=== PATIENT | female | born 1965 | race Caucasian/White ===

== ENCOUNTER 2017-02-01 13:28 | Emergency (ER) | payer BC ==
[~2017-02-01] VITALS: Ht 167.6 cm; Wt 63.0 kg
[2017-02-01 13:35] VITALS: BP 140/73; PULSE 93; RESP 16; TEMP 98.3; O2SAT 99
[2017-02-01] MEDS ORDERED: METF1000 PO (13:56)
[2017-02-01] MEDS ORDERED: GABA800T PO (13:56)
--- NOTE | 2017-02-01 13:58 | PD ---
HPI Chief Complaint: Dizziness Time Seen by Provider: 13:46 Travel History International Travel<30 days: No Contact w/Intl Traveler<30days: No Traveled to known affect area: No History of Present Illness HPI 51-year-old diabetic female here with complaint of lightheadedness. Patient has been off her metformin, insulin, gabapentin for 6+ months due to lapse of health insurance and financial ability. Patient states that since she's been having increasing symptoms of peripheral neuropathy in a stocking-like distribution the bilateral lower extremities, burning, tingling pain. She also notes that when she first gets up in the morning she feels somewhat lightheaded and dizzy. This improves after she eats. She does not have a primary care provider but now does have health insurance. No chest pain, shortness of breath. PFSH Past Medical History Cardiovascular Problems: Yes (DIABETIC NEUROPATHY) Diabetes: Yes Patient Takes Glucophage: No Kidney Stones: Yes (HX) Influenza Vaccination: No ?: Not LMP: 01/31/17 Past Surgical History Surgical History: No Previous Surgery Social History Alcohol Use: Yes (OCCAS) Tobacco Use: No Substance Use: No Allergies-Medications (Allergen,Severity, Reaction): Coded Allergies: No Known Allergies (Unverified , 02/01/17) Reported Meds & Prescriptions Reported Meds & Active Scripts Active Gabapentin 800 Mg Tab 800 Mg PO TID Metformin (Metformin HCl) 1,000 Mg Tab 1,000 Mg PO BIDPC With meals Review of Systems Except as stated in HPI: all other systems reviewed are Neg Physical Exam Narrative GENERAL: Middle-aged female in no acute distress SKIN: Focused skin assessment warm/dry. HEAD: Normocephalic. EYES: No scleral icterus. No injection or drainage. ENT: Mucous membranes pink and moist. NECK: Supple CARDIOVASCULAR: Regular rate and rhythm. No murmur appreciated. RESPIRATORY: No accessory muscle use. Clear to auscultation. Breath sounds equal bilaterally. GASTROINTESTINAL: Abdomen soft, non-tender, nondistended. MUSCULOSKELETAL: No obvious deformities.No edema. Stocking-like paresthesias in the bilateral lower extremities from the knee distally NEUROLOGICAL: Awake and alert. Motor grossly within normal limits. Normal speech. PSYCHIATRIC: Appropriate mood and affect; insight and judgment normal. Data Data Last Documented VS Vital Signs Date Time Temp Pulse Resp B/P Pulse Ox O2 Delivery O2 Flow Rate FiO2 02/01/17 13:35 98.3 93 16 140/73 99 MDM Medical Decision Making Medical Screen Exam Complete: Yes Emergency Medical Condition: Yes Medical Record Reviewed: Yes Differential Diagnosis 51-year-old type II diabetic noncompliant with medications 6 months due to lack of health insurance here with lightheadedness in the morning prior to eating and increasing neuropathic pain in the bilateral lower extremities. Blood glucose here in the 390s. Symptoms likely due to her underlying noncompliance and nontreatment of diabetes with hyperglycemia. She is asymptomatic at this time. Narrative Course I do not feel the patient warrants any further workup. She was reassured and instructed to start the metformin and gabapentin prescribed to her. She used to take insulin but does not know what type of insulin, nor how much. She was given referral to primary care provider to establish care and for further diabetic management. Diagnosis Primary Impression: Hyperglycemia Additional Impression: Diabetic neuropathy Qualified Code: E11.42 - Diabetic polyneuropathy associated with type 2 diabetes mellitus Referrals: [facility] call for appointment Additional Instructions: Metformin is free at [facility]. Follow-up with primary care provider to establish care. Med/Other Pt SpecificInfo: Prescription(s) given Scripts Gabapentin 800 Mg [id number] Mg PO TID #90 TAB Ref 0 Prov:Suni Queen MD 02/01/17 Metformin 1,000 Mg Tab1,000 Mg PO BIDPC #60 TAB Ref 0 With meals Prov:Suni Queen MD 02/01/17 Disposition: 01 DISCHARGE HOME Condition: Stable Suni Queen MD Feb 01, 2017 13:58
== END 2017-02-01 14:17 | disposition home or self-care (01) ==
LOC: PHED 14:02
DX: E11.65 Type 2 diabetes mellitus with hyperglycemia (principal); E11.40 Type 2 diabetes mellitus with diabetic neuropathy, unspecified; Z87.442 Personal history of urinary calculi; T38.3X6A Underdosing of insulin and oral hypoglycemic [antidiabetic] drugs, initial encounter; T42.6X6A Underdosing of other antiepileptic and sedative-hypnotic drugs, initial encounter; Z91.120 Patient's intentional underdosing of medication regimen due to financial hardship; Y92.9 Unspecified place or not applicable
CPT/HCPCS: 99284

== ENCOUNTER 2017-04-20 00:23 | Emergency (ER) | payer BC ==
[~2017-04-20] VITALS: Ht 165.1 cm; Wt 66.0 kg
[~2017-04-20 00:23] MED LIST: GABA800T PO; METF1000 PO
[2017-04-20 00:32] VITALS: BP 126/80; PULSE 94; RESP 18; TEMP 98.2; O2SAT 98
[2017-04-20] MEDS ORDERED: TETANUS/DIPHTHERIA TOXOID ADULT 0.5 ML VIAL IM ONE (01:00)
[2017-04-20] MEDS ORDERED: LIDOCAINE 1%/EPINEPHrine 1:100,000 SOLN 20 ML VIAL INFIL ONE (01:00)
--- NOTE | 2017-04-20 01:03 | PD ---
HPI Chief Complaint: Laceration/Skin Injury Time Seen by Provider: 00:58 Travel History International Travel<30 days: No Contact w/Intl Traveler<30days: No Traveled to known affect area: No History of Present Illness HPI The patient is a 51-year-old female that lacerated above her left ear at about 0015 tonight. She has not had a tetanus shot in over 10 years. There was no loss of consciousness. She denies any nausea or vomiting. She has a mild headache on the left. [facility] Past Medical History Cardiovascular Problems: Yes (DIABETIC NEUROPATHY) Diabetes: Yes Kidney Stones: Yes (HX) Social History Alcohol Use: Yes (OCCAS) Tobacco Use: No Substance Use: No Allergies-Medications (Allergen,Severity, Reaction): Coded Allergies: No Known Allergies (Unverified , 04/20/17) Reported Meds & Prescriptions Reported Meds & Active Scripts Active Gabapentin 800 Mg Tab 800 Mg PO TID Metformin (Metformin HCl) 1,000 Mg Tab 1,000 Mg PO BIDPC With meals Review of Systems Except as stated in HPI: all other systems reviewed are Neg Physical Exam Narrative GENERAL: The patient is alert, oriented 3 in minimal apparent distress with her skin laceration above her left ear. SKIN: Focused skin assessment warm/dry. There is a 2 cm laceration above the left ear. There is no associated skull deformity. HEAD: Neither raccoon eyes nor lew sign is present. Normocephalic. EYES: Pupils equal and round. No scleral icterus. No injection or drainage. ENT: No nasal bleeding or discharge. Mucous membranes pink and moist. There is no hemotympanum. NECK: Trachea midline. No JVD. CARDIOVASCULAR: Regular rate and rhythm. No murmur appreciated. RESPIRATORY: No accessory muscle use. Clear to auscultation. Breath sounds equal bilaterally. GASTROINTESTINAL: Abdomen soft, non-tender, nondistended. Hepatic and splenic margins not palpable. MUSCULOSKELETAL: No obvious deformities. No clubbing. No cyanosis. No edema. NEUROLOGICAL: Awake and alert. No obvious cranial nerve deficits. Motor grossly within normal limits. Normal speech. PSYCHIATRIC: Appropriate mood and affect; insight and judgment normal. Data Data Last Documented VS Vital Signs Date Time Temp Pulse Resp B/P (MAP) Pulse Ox O2 Delivery O2 Flow Rate FiO2 04/20/17 00:32 98.2 94 18 126/80 (95) 98 Orders Orders Lidocai-Epi 1%-1:100,000 Inj (Xylocaine- (04/20/17 01:00) Tetanus/Diphtheria Tox Adult (Tetanus/Di (04/20/17 01:00) Wound Care (04/20/17 00:59) MDM Medical Decision Making Medical Screen Exam Complete: Yes Emergency Medical Condition: Yes Medical Record Reviewed: Yes Differential Diagnosis Laceration requiring sutures, laceration not requiring sutures or genaro, skull fracture-unlikely. Narrative Course The patient has a laceration that required suturing. Procedures Procedure Narrative The laceration was infiltrated with lidocaine with epinephrine. The wound was copiously irrigated with saline. Under sterile technique, the skin around the laceration was scrubbed with Betadine. Under sterile technique, 4 stitches of 4 -0 nylon were put in. [place] could not reach this area effectively. The patient tolerated the procedure well. Diagnosis Primary Impression: Laceration of scalp Additional Instructions: As we discussed, return in 10-12 days for suture removal. If you have any problems, please return immediately. If you get nausea/vomiting or severe headache please return immediately for reevaluation. Med/Other Pt SpecificInfo: No Change to Meds Disposition: 01 DISCHARGE HOME Condition: Stable Valerio Dukes MD Apr 20, 2017 01:02
[2017-04-20 02:16] VITALS: BP 120/80
== END 2017-04-20 02:17 | disposition home or self-care (01) ==
LOC: PHED 00:23
DX: S01.01XA Laceration without foreign body of scalp, initial encounter (principal); X58.XXXA Exposure to other specified factors, initial encounter
CPT/HCPCS: 90714; 96361; 96374; 96375; 96376

== ENCOUNTER 2017-04-30 15:59 | Emergency (ER) | payer BC ==
[~2017-04-30] VITALS: Ht 167.6 cm; Wt 66.7 kg
[2017-04-30 16:02] VITALS: BP 123/58; PULSE 95; RESP 15; TEMP 98.4; O2SAT 97
--- NOTE | 2017-04-30 16:17 | PD ---
HPI Chief Complaint: Wound/Suture/Staple Re-Check Time Seen by Provider: 16:10 Travel History International Travel<30 days: No Contact w/Intl Traveler<30days: No Traveled to known affect area: No History of Present Illness HPI 51-year-old female that presents to the ED for evaluation of suture removal. Patient had a laceration about a week ago and had sutures placed on the area just above the ear on the left. She has had no issues. Patient should to get the sutures removed. No other medical complaints. No pain. No signs of infection. PFSH Past Medical History Cardiovascular Problems: Yes (DIABETIC NEUROPATHY) Diabetes: Yes Kidney Stones: Yes (HX) Past Surgical History Section: Yes Gynecologic Surgery: Yes () Social History Alcohol Use: Yes (OCCAS) Tobacco Use: No Substance Use: No Allergies-Medications (Allergen,Severity, Reaction): Coded Allergies: No Known Allergies (Unverified , 04/30/17) Reported Meds & Prescriptions Reported Meds & Active Scripts Active Gabapentin 800 Mg Tab 800 Mg PO TID Metformin (Metformin HCl) 1,000 Mg Tab 1,000 Mg PO BIDPC With meals Review of Systems Except as stated in HPI: all other systems reviewed are Neg Physical Exam Narrative GENERAL: SKIN: Warm and dry. Patient has a very superficial 2 cm well-healed laceration just above the left ear. Patient has [address] HEAD: Atraumatic. Normocephalic. EYES: Pupils equal and round. No scleral icterus. No injection or drainage. ENT: No nasal bleeding or discharge. Mucous membranes pink and moist. NECK: Trachea midline. No JVD. CARDIOVASCULAR: Regular rate and rhythm. RESPIRATORY: No accessory muscle use. Clear to auscultation. Breath sounds equal bilaterally. GASTROINTESTINAL: Abdomen soft, non-tender, nondistended. Hepatic and splenic margins not palpable. MUSCULOSKELETAL: Extremities without clubbing, cyanosis, or edema. No obvious deformities. NEUROLOGICAL: Awake and alert. No obvious cranial nerve deficits. Motor grossly within normal limits. Five out of 5 muscle strength in the arms and legs. Normal speech. PSYCHIATRIC: Appropriate mood and affect; insight and judgment normal. Data Data Last Documented VS Vital Signs Date Time Temp Pulse Resp B/P (MAP) Pulse Ox O2 Delivery O2 Flow Rate FiO2 04/30/17 16:02 98.4 95 15 123/58 (79) 97 MDM Medical Decision Making Medical Screen Exam Complete: Yes Emergency Medical Condition: Yes Medical Record Reviewed: Yes Differential Diagnosis Suture removal versus wound check versus wound infection Narrative Course 51-year-old female that presents to the ED for evaluation of suture removal. Patient was properly examined and was found to have signs and symptoms consistent with suture removal. After the procedure to the patient and she agreed to it sutures were removed using sterile suture removal kit with minimal discomfort for the patient. Wound care was endorsed. Follow with PCP. See ED worsening symptoms. Diagnosis Primary Impression: Visit for suture removal Patient Instructions: General Instructions Additional Instructions: Wound care as needed. Follow with PCP. See ED for worsening symptoms. Med/Other Pt SpecificInfo: No Change to Meds Disposition: 01 DISCHARGE HOME Condition: Stable Jeramie Oakes Apr 30, 2017 16:17
[2017-04-30] MEDS ORDERED: SIMV10TA PO (16:23)
[2017-04-30] MEDS ORDERED: METF1000 PO (16:23)
== END 2017-04-30 16:42 | disposition home or self-care (01) ==
LOC: PHEFT 15:59
DX: S01.01XD Laceration without foreign body of scalp, subsequent encounter (principal); X58.XXXD Exposure to other specified factors, subsequent encounter; Z48.02 Encounter for removal of sutures
CPT/HCPCS: 99281